=== PATIENT | female | born 1955 | race Caucasian/White ===

== ENCOUNTER 2016-08-28 21:02 | Emergency (ER) | payer SELFPAY ==
[~2016-08-28] VITALS: Ht 167.6 cm; Wt 72.7 kg
[2016-08-28 21:04] VITALS: BP 121/72; PULSE 72; RESP 16; O2SAT 99
--- NOTE | 2016-08-28 21:50 | DRSVH ---
CORRECTED ORDERING PROVIDER AND CC PROVIDER ON 09/06/16 PROCEDURE: X-RAY RIGHT KNEE, THREE VIEWS ([id number]) INDICATIONS: injury TECHNIQUE: 3 2views of the knee were acquired. COMPARISON: None. FINDINGS: Bones: No fractures or dislocations. No suspicious bony lesions. Soft tissues: No joint effusion. No suspicious soft tissue calcifications. IMPRESSION: No abnormality is seen in these 3 views of the right knee. Dictated by: Lucian Pradhan M.D. on 08/28/2016 at 21:47 Approved by: Lucian Pradhan M.D. on 08/28/2016 at 21:48
--- NOTE | 2016-08-28 21:52 | DRSVH ---
PROCEDURE: X-RAY RIGHT TIBIA/FIBULA, TWO VIEWS ([id number]) INDICATIONS: injury TECHNIQUE: 2 views of the tibia and fibula were acquired. COMPARISON: None. FINDINGS: Bones: There is an acute nondisplaced fracture of the head and neck of the fibula is seen in the late ral view. There is incidental note made of a small exostosis of the fibular neck head junction medial ly. Soft tissues: No suspicious soft tissue calcifications or masses. IMPRESSION: Nondisplaced fracture of the fibular head and neck is seen in the lateral view. No fracture distally of the fibula or tibia is seen. Dictated by: Lucian Pradhan M.D. on 08/28/2016 at 21:48 Approved by: Lucian Pradhan M.D. on 08/28/2016 at 21:50
--- NOTE | 2016-08-28 22:41 | ED.REPORT ---
HPI-Extremity Problem Lower Date of Service August 28, 2016 ED Provider: Oracio Ortega MD The patient is a healthy 61 year old female who presents to the ED with a right leg injury onset today. The patient was balancing on a short ledge in the garage when she fell backwards onto a box. The patient now reports right knee and right proximal calf pain. She has been able to ambulate with difficulty. The patient denies additional injury/trauma or other symptoms. Nursing Notes Stated Complaint: RIGHT LEG PAIN Chief Complaint: Extremity Trauma Nursing Notes Reviewed: Yes Allergies: Coded Allergies: No Known Allergies (Unverified , 10/16/15) General Time Seen by MD: 22:38 Chief Complaint Leg injury right Hx Obtained From: Patient Arrived By: Walk-in Onset Occurred: 1 - 4 hours ago Symptom Duration: Since onset Caused by: Fall from height... (< 3 feet) Context: Occurred at: Home injury Location: : Knee right: Leg right Quality: Painful Severity: Current: Moderate Severity: Maximum: Moderate Pertinent Negative: Relieved by nothing Immunizations: Unknown Recent Healthcare: No recent doctor visit Past Medical History Past Medical History None reported Past Surgical History None reported Smoking History Unknown if Ever Smoker Social History Other Social History: Ambulatory Status Independent Review of Systems Constitutional: Denies: Fever Musculoskeletal: Reports: Extremity pain (Right proximal calf), Joint pain ( Right knee) Neurologic: Reports: Problem walking Complete sys rev & neg: except as marked. Respiratory: Denies: Non-productive cough, Shortness of breath GI: Denies: Diarrhea, Vomiting Physical Exam Initial Vital Signs Vital Signs (First) Date Time Temp Pulse Resp B/P Pulse Ox O2 Delivery O2 Flow Rate FiO2 08/28/16 21:04 36.5 72 16 121/72 99 Room Air Initial VS: Reviewed, Vital signs normal Head / Eyes: Atraumatic, Normocephalic ENT: Conjunctiva normal, No scleral icterus Neck: Supple, Non-tender, Full range of motion Respiratory: Breath sounds normal, Clear to auscultation, No respiratory distress Cardiovascular: Regular rate & rhythm, Heart sounds normal Abdomen / GI: Soft, Non-tender Skin: Warm, Dry, No cyanosis Neurologic: Alert, Oriented, Nonfocal Psychiatric: Mood/affect normal, Behavior normal, Normal thought content Lower Extremity / Pelvis / MS: Neurologic intact, Vascular intact Right Leg / Calf: Positive: Tenderness present... (Over fibular head) Ankle / Foot: Neurologic intact, Vascular intact Right Ankle: Positive: Tenderness present... (Distal fibula ) Interpretation & Diagnostics X-Ray Interpretation Xray Interpretation: IMPRESSION: Nondisplaced fracture of the fibular head and neck is seen in the lateral view. No fracture distally of the fibula or tibia is seen. Dictated by: Lucian Pradhan M.D. on 08/28/2016 at 21:48 Study Performed: 2 View X-Ray Ordered: Tibia fibula right Interpretation / Wet Read by: Interpret - Radiologist Xray Interpretation: IMPRESSION: No abnormality is seen in these 3 views of the right knee. Dictated by: Lucian Pradhan M.D. on 08/28/2016 at 21:47 Study Performed: 3 View X-Ray Ordered: Knee right Interpretation / Wet Read by: Interpret - Radiologist Re-Eval/Medical Decision Med Decision/Clinical Course 61-year-old female with a proximal fibular head fracture. She has tenderness but no dislocation or fracture at the distal fibula. Distal neurovascular is normal. She has no associated injuries. She was fitted with a knee immobilizer and crutches. She will follow up with at [facility]. She declined narcotic pain medicines. Re-Evaluation/Progress : Time of Eval: 22:58 Patient Status: Condition improved Re-Evaluation/Progress Note: Discussed with patient x-ray results, diagnosis, and plan for discharge. Follow-up and return to the ER instructions given. Patient agrees with plan for care and all questions were addressed. Counseled Regarding: Diagnosis, Need for follow-up, When/why to return to ED Discharge & Departure Impression: Primary Impression: Fracture of right proximal fibula Encounter type: initial encounter Fracture type: closed Fracture morphology : unspecified fracture morphology Qualified Code: S82.831A - Other fracture of upper and lower end of right fibula, initial encounter for closed fracture Disposition: Home Discharge Condition All VS Reviewed: Yes Condition: Improved Patient Instructions: Crutch Instructions (ED), Leg Fracture (ED) Additional Instructions: Nondisplaced fracture of the top of the right fibula associated with a mild sprain of the right ankle. Knee immobilizer and crutches. Ice and elevation. See attached instructions. Tylenol and/or ibuprofen as needed for pain. Call to schedule appointment with Dr. Huggins at [facility] in 3-5 days for further fracture management. Referrals: NOPCP (PCP) Jus Huggins MD Attestation Portions of this note were transcribed by Nancy Patel. I, Dr. Ortega, personally performed the history, physical exam, and medical decision-making; I reviewed and confirmed the accuracy of the information in the transcribed note. Signed by: Delia Barnes, 08/29/2016, 00:25 copies to: Jus Huggins MD, Howard L MD August 28, 2016 22:41 NANCY PATEL August 28, 2016 22:56
[2016-08-28] MEDS ORDERED: LORazepam 1 mg Tablet PO ONE (23:40)
[2016-08-28 23:49] VITALS: BP 117/66; PULSE 72; O2SAT 96
[2016-08-28 23:55] VITALS: BP 117/66; PULSE 72; O2SAT 96
== END 2016-08-28 23:55 | disposition home or self-care (01) ==
LOC: SED 21:02
DX: S82.831A Other fracture of upper and lower end of right fibula, initial encounter for closed fracture (principal); W17.89XA Other fall from one level to another, initial encounter; Y93.89 Activity, other specified; Y92.015 Private garage of single-family (private) house as the place of occurrence of the external cause; Y99.8 Other external cause status